=== PATIENT | female | born 1995 | race African-American/Black ===

== ENCOUNTER 2017-10-21 19:02 | Emergency (ER) | payer BC ==
[~2017-10-21] VITALS: Ht 165.1 cm; Wt 79.8 kg
[2017-10-21 19:15] LABS: URINE BILIRUBIN NEGATIVE (Negative); URINE BLOOD TRACE (Negative); URINE CLARITY CLEAR; URINE COLOR YELLOW; URINE GLUCOSE-RANDOM* NEGATIVE (Negative); URINE KETONES NEGATIVE (Negative); URINE LEUKOCYTES 1+ (Negative); URINE NITRITE NEGATIVE (Negative); URINE PROTEIN (DIPSTICK) NEGATIVE (Negative); URINE SPECIFIC GRAVITY 1.025 (1.005-1.035); URINE UROBILINOGEN 0.2 E.U./dl (0.2-1.0)
[2017-10-21] MEDS ORDERED: PRENATAL TABLE1 EAC3 PO (19:21)
[2017-10-21 19:23] LABS: BACTERIA 1-9 Few /HPF (None Seen); SQUAMOUS 4-10 Moderate /LPF (0-3); URINE RBC 0-2 Rare /HPF (0-2); URINE WBC 6-15 Few /HPF (0-5)
[2017-10-21 19:24] LABS: CASTS None Seen /LPF (None Seen); CRYSTALS None Seen /LPF (None Seen)
[2017-10-21 19:40] LABS: HEMATOCRIT 35.5 % (37.0-47.0); HEMOGLOBIN 11.9 gm/dL (12.0-15.0); MCH 28.5 pg (26.0-34.0); MCHC 33.6 g/dL (28.0-37.0); MCV 84.9 fL (80.0-100.0); RBC 4.19 mil/uL (4.20-5.00); RDW 15.1 % (10.5-14.5); WBC 10.6 thou/uL (4.0-11.0)
[2017-10-21 19:57] LABS: CALCIUM 8.8 mg/dL (8.5-10.1); CREATININE 0.6 mg/dL (0.6-1.0); POTASSIUM 3.7 mmol/L (3.5-5.1)
== END 2017-10-21 21:10 | disposition home or self-care (01) ==
LOC: ER 19:02
PROVIDERS: Physician Assistant
DX: O23.41 Unspecified infection of urinary tract in pregnancy, first trimester (principal); Z87.891 Personal history of nicotine dependence; Z3A.08 8 weeks gestation of pregnancy